=== PATIENT | male | born 1990 | race Caucasian/White ===

== ENCOUNTER 2019-02-04 15:19 | Inpatient (IN) | payer MEDICAID, OTHER ==
[~2019-02-04] VITALS: Ht 172.7 cm; Wt 68.0 kg
[~2019-02-04 15:19] MED LIST: ACET-2247 PO; RISP3 PO; SERT50TA12 PO
[2019-02-04] MEDS ORDERED: SODIUM CHLORIDE 0.9% 1,000 ML IV ONE ×3 (15:30→22:30)
[2019-02-04 15:58] LABS: BASOPHILS % (AUTO) 0.4 % (0.0-2.0); EOSINOPHILS % (AUTO) 0.2 % (1.0-6.0); HEMATOCRIT 35.7 % (41-53); HEMOGLOBIN 11.5 g/dL (13.5-17.5); LYMPHOCYTES # (AUTO) 0.6 K/uL (1.0-4.8); MEAN CORPUSCULAR HEMOGLOBIN 29.3 pg (26.0-34.0); MEAN CORPUSCULAR HGB CONC 32.2 G/dL (31.0-37.0); MEAN CORPUSCULAR VOLUME 91 fL (80-100); MONOCYTES # (AUTO) 0.3 K/uL (0.1-1.0); MONOCYTES % (AUTO) 4.7 % (2.0-9.0); NEUTROPHILS # (AUTO) 6.1 K/uL (1.8-7.7); PLATELET COUNT (AUTO) 270 K/uL (150-450); RED BLOOD CELL COUNT(AUTO) 3.93 MIL/uL (4.50-5.90); RED CELL DISTRIBUTION WIDTH 15.2 % (11.5-14.5)
[2019-02-04 16:00] LABS: NEUTROPHILS % (AUTO) 86.7 % (40.0-70.0)
[2019-02-04 16:07] LABS: ANION GAP 24 mmol/L (8-16); CALCIUM, TOTAL 8.3 mg/dL (8.8-10.5); CARBON DIOXIDE 14 mmol/L (22-29); CHLORIDE 108 mmol/L (98-107); CREATININE 1.02 mg/dL (0.60-1.30); GLOMERULAR FILTR. RATE CALC > 60 mL/min (>60); GLUCOSE,RANDOM 101 mg/dL (70-110); POTASSIUM 3.6 mmol/L (3.5-5.1); SODIUM SERUM 146 mmol/L (136-145); UREA NITROGEN, BLOOD 7 mg/dL (7-18)
[2019-02-04 16:12] LABS: PLATELET MORPHOLOGY COMMENT LARGE PLTS PRESENT
[2019-02-04 16:13] LABS: ALANINE AMINOTRANSFERASE 14 U/L (12-78); ALBUMIN 3.1 g/dL (3.4-5.0); ALKALINE PHOSPHATASE 72 U/L (46-116); ASPARTATE AMINOTRANSFERASE 19 U/L (15-37); BILIRUBIN,TOTAL 0.4 mg/dL (0.1-1.0)
[2019-02-04 16:14] LABS: ACETAMINOPHEN < 2 mcg/mL (10-30); SALICYLATE < 2.8 mg/dL (2.8-20.0)
[2019-02-04 16:42] LABS: AMPHET/METH SCREEN,URINE NEGATIVE (NEGATIVE); BARBITURATE SCREEN, URINE NEGATIVE (NEGATIVE); BENZODIAZEPINES SCREEN,URINE POSITIVE (NEGATIVE); CANNABINOID SCREEN,URINE NEGATIVE (NEGATIVE); COCAINE SCREEN,URINE NEGATIVE (NEGATIVE); METHADONE SCREEN, URINE NEGATIVE (NEGATIVE); OPIATE SCREEN,URINE NEGATIVE (NEGATIVE); PHENCYCLIDINE SCREEN,URINE NEGATIVE (NEGATIVE)
[2019-02-04] MEDS ORDERED: LORazepam 2 MG/ML VIAL ONE (21:02)
[2019-02-04] MEDS ORDERED: HALOPERIDOL LACTATE 5 MG/ML VIAL ONE (21:02)
[2019-02-04] MEDS ORDERED: HALOPERIDOL LACTATE 5 MG/ML VIAL IM ONE (21:15)
[2019-02-04] MEDS ORDERED: LORazepam 2 MG/ML VIAL IM ONE (21:15)
[2019-02-04] MEDS ORDERED: DiphenhydrAMINE HCL 50 MG/ML VIAL ONE (21:34)
[2019-02-04] MEDS ORDERED: DiphenhydrAMINE HCL 50 MG/ML VIAL IM ONE (22:00)
[2019-02-04 22:19] LABS: ANION GAP 8 mmol/L (8-16); CALCIUM, TOTAL 8.4 mg/dL (8.8-10.5); CARBON DIOXIDE 25 mmol/L (22-29); CHLORIDE 108 mmol/L (98-107); CREATININE 0.74 mg/dL (0.60-1.30); GLOMERULAR FILTR. RATE CALC > 60 mL/min (>60); GLUCOSE,RANDOM 89 mg/dL (70-110); POTASSIUM 3.1 mmol/L (3.5-5.1); SODIUM SERUM 141 mmol/L (136-145); UREA NITROGEN, BLOOD 4 mg/dL (7-18)
[2019-02-04] MEDS ORDERED: POTASSIUM CHLORIDE 20 MEQ ER TABLET PO ONE (22:45)
[2019-02-04 22:49] LABS: ALANINE AMINOTRANSFERASE 13 U/L (12-78); ALBUMIN 3.3 g/dL (3.4-5.0); ALKALINE PHOSPHATASE 77 U/L (46-116); ASPARTATE AMINOTRANSFERASE 26 U/L (15-37); BILIRUBIN,TOTAL 0.8 mg/dL (0.1-1.0); CREATINE KINASE, TOTAL ONLY 322 U/L (39-308); TOTAL PROTEIN, SERUM 7.2 g/dL (6.4-8.2)
[2019-02-05] MEDS ORDERED: BACITRACIN 0.9 GM PACKET OINTMENT TP ONE
[2019-02-05] MEDS: LORazepam 2 MG TABLET PO PRN ×3 (06:31→16:59)
[2019-02-05] MEDS: HALOPERIDOL 5 MG TABLET PO PRN ×3 (06:32→16:59)
[2019-02-05] MEDS: RisperiDONE 2 MG TABLET PO SCH (20:51)
[2019-02-05 21:45] VITALS: BP 121/88
[2019-02-05] MEDS ORDERED: MAGNESIUM HYDROXIDE SUSPENSION 30 ML UDCUP PO PRN (21:45)
[2019-02-05] MEDS ORDERED: ALBUTEROL SULFATE HFA 90 MCG/PUFF 8 GM INHALER IH PRN (21:45)
[2019-02-05] MEDS ORDERED: DOCUSATE SODIUM 100 MG CAPSULE PO PRN (21:45)
[2019-02-05] MEDS ORDERED: CloNIDine HCL 0.1 MG TABLET PO PRN (21:45)
[2019-02-05] MEDS ORDERED: PETROLATUM,WHITE 28 GM JELLY TP PRN (21:45)
[2019-02-05] MEDS ORDERED: ONDANSETRON HCL 4 MG TABLET PO PRN (21:45)
[2019-02-05] MEDS ORDERED: GuaiFENesin/D-METHORPHAN [SUGAR-FREE] 200-20MG/10 ML SYRUP UDCUP PO PRN (21:45)
[2019-02-05] MEDS ORDERED: PNEUMOCOCCAL VACCINE POLYVALENT 0.5 ML VIAL [PPSV23] IM ONE (22:15)
[2019-02-06] MEDS: RisperiDONE 2 MG TABLET PO SCH ×2 (09:18→20:37)
[2019-02-06 10:21] VITALS: BP 144/84
[2019-02-06] MEDS: SULFAMETHOX/TRIMETH DS 800-160 MG/TABLET PO SCH ×2 (10:59→16:24)
[2019-02-06] MEDS: CEPHALEXIN MONOHYDRATE 500 MG CAPSULE PO SCH ×2 (13:09→16:24)
[2019-02-06] MEDS: NICOTINE 14 MG/24 HOUR PATCH TD PRN (13:55)
[2019-02-06] MEDS: MULTIVITAMINS WITH MINERALS, THERAPEUTIC TABLET PO SCH (15:11)
[2019-02-06 16:55] VITALS: BP 135/75
[2019-02-06] MEDS: LORazepam 2 MG TABLET PO PRN (18:19)
[2019-02-07] VITALS: BP 143/96
[2019-02-07] MEDS: ZOLPIDEM TARTRATE 10 MG TABLET PO PRN (00:10)
[2019-02-07] MEDS: LORazepam 2 MG TABLET PO PRN (00:10)
[2019-02-07] MEDS: CEPHALEXIN MONOHYDRATE 500 MG CAPSULE PO SCH ×4 (09:02→16:39)
[2019-02-07] MEDS: RisperiDONE 2 MG TABLET PO SCH ×2 (09:02→21:03)
[2019-02-07] MEDS: SULFAMETHOX/TRIMETH DS 800-160 MG/TABLET PO SCH ×2 (09:02→16:39)
[2019-02-07] MEDS: MULTIVITAMINS WITH MINERALS, THERAPEUTIC TABLET PO SCH (09:02)
[2019-02-07] MEDS: TRIHEXYPHENIDYL HCL 2 MG TABLET PO SCH ×2 (11:42→21:03)
[2019-02-07 12:02] VITALS: BP 133/75
[2019-02-07 16:00] VITALS: BP 112/73
[2019-02-08 08:00] VITALS: BP 145/93
[2019-02-08] MEDS: CEPHALEXIN MONOHYDRATE 500 MG CAPSULE PO SCH ×3 (08:26→16:01)
[2019-02-08] MEDS: SULFAMETHOX/TRIMETH DS 800-160 MG/TABLET PO SCH ×2 (08:27→16:01)
[2019-02-08] MEDS: MULTIVITAMINS WITH MINERALS, THERAPEUTIC TABLET PO SCH (08:27)
[2019-02-08] MEDS: RisperiDONE 2 MG TABLET PO SCH ×2 (08:27→20:48)
[2019-02-08] MEDS: TRIHEXYPHENIDYL HCL 2 MG TABLET PO SCH ×2 (08:27→20:48)
[2019-02-08] MEDS: LORazepam 2 MG TABLET PO PRN (16:02)
[2019-02-08 20:20] VITALS: BP 133/76
[2019-02-09 06:18] VITALS: BP 115/69
[2019-02-09 08:20] VITALS: BP 144/89
[2019-02-09] MEDS: SULFAMETHOX/TRIMETH DS 800-160 MG/TABLET PO SCH ×2 (09:45→16:12)
[2019-02-09] MEDS: HALOPERIDOL 5 MG TABLET PO PRN ×2 (09:45→14:08)
[2019-02-09] MEDS: CEPHALEXIN MONOHYDRATE 500 MG CAPSULE PO SCH ×3 (09:45→16:11)
[2019-02-09] MEDS: MULTIVITAMINS WITH MINERALS, THERAPEUTIC TABLET PO SCH (09:45)
[2019-02-09] MEDS: LORazepam 2 MG TABLET PO PRN ×2 (09:45→14:08)
[2019-02-09] MEDS: RisperiDONE 2 MG TABLET PO SCH ×2 (09:46→21:57)
[2019-02-09] MEDS: TRIHEXYPHENIDYL HCL 2 MG TABLET PO SCH ×2 (09:46→21:57)
[2019-02-09 18:47] VITALS: BP 121/87
[2019-02-10] MEDS: LORazepam 2 MG TABLET PO PRN ×3 (03:15→12:36)
[2019-02-10] MEDS: ZOLPIDEM TARTRATE 10 MG TABLET PO PRN (03:15)
[2019-02-10] MEDS: SULFAMETHOX/TRIMETH DS 800-160 MG/TABLET PO SCH ×2 (08:29→16:13)
[2019-02-10] MEDS: HALOPERIDOL 5 MG TABLET PO PRN ×2 (08:29→12:36)
[2019-02-10] MEDS: MULTIVITAMINS WITH MINERALS, THERAPEUTIC TABLET PO SCH (08:29)
[2019-02-10] MEDS: RisperiDONE 2 MG TABLET PO SCH ×2 (08:29→21:00)
[2019-02-10] MEDS: CEPHALEXIN MONOHYDRATE 500 MG CAPSULE PO SCH ×3 (08:29→16:13)
[2019-02-10] MEDS: TRIHEXYPHENIDYL HCL 2 MG TABLET PO SCH ×2 (08:29→21:00)
[2019-02-10 12:36] VITALS: BP 154/103
[2019-02-10] MEDS: IBUPROFEN 400 MG TABLET PO PRN (12:36)
[2019-02-10 16:42] VITALS: BP 116/59
[2019-02-11] MEDS: ZOLPIDEM TARTRATE 10 MG TABLET PO PRN ×2 (00:27→23:34)
[2019-02-11] MEDS: LORazepam 2 MG TABLET PO PRN ×4 (00:27→23:35)
[2019-02-11] MEDS: IBUPROFEN 400 MG TABLET PO PRN ×3 (00:42→23:05)
[2019-02-11 00:43] VITALS: BP 132/75
[2019-02-11] MEDS: TRIHEXYPHENIDYL HCL 2 MG TABLET PO SCH ×2 (07:53→21:25)
[2019-02-11] MEDS: MULTIVITAMINS WITH MINERALS, THERAPEUTIC TABLET PO SCH (07:53)
[2019-02-11] MEDS: HALOPERIDOL 5 MG TABLET PO PRN ×2 (07:54→12:09)
[2019-02-11] MEDS: RisperiDONE 2 MG TABLET PO SCH ×2 (07:54→21:25)
[2019-02-11] MEDS: CEPHALEXIN MONOHYDRATE 500 MG CAPSULE PO SCH ×3 (07:54→16:26)
[2019-02-11] MEDS: SULFAMETHOX/TRIMETH DS 800-160 MG/TABLET PO SCH ×2 (07:54→16:26)
[2019-02-11] MEDS: NICOTINE 14 MG/24 HOUR PATCH TD PRN (07:55)
[2019-02-11 08:01] VITALS: BP 125/83
[2019-02-11 16:10] VITALS: BP 126/69
[2019-02-11 18:45] VITALS: BP 126/72
[2019-02-11] MEDS ORDERED: BENZOCAINE 10% 7 GM GEL TP PRN (20:00)
[2019-02-12] MEDS: HALOPERIDOL 5 MG TABLET PO PRN ×2 (00:50→12:20)
[2019-02-12] MEDS: TRIHEXYPHENIDYL HCL 2 MG TABLET PO SCH ×2 (08:14→21:22)
[2019-02-12] MEDS: MULTIVITAMINS WITH MINERALS, THERAPEUTIC TABLET PO SCH (08:14)
[2019-02-12] MEDS: CEPHALEXIN MONOHYDRATE 500 MG CAPSULE PO SCH ×3 (08:14→16:33)
[2019-02-12] MEDS: SULFAMETHOX/TRIMETH DS 800-160 MG/TABLET PO SCH ×2 (08:14→16:33)
[2019-02-12] MEDS: RisperiDONE 2 MG TABLET PO SCH ×2 (08:14→21:22)
[2019-02-12] MEDS: LORazepam 2 MG TABLET PO PRN ×2 (12:20→16:35)
[2019-02-12] MEDS: NICOTINE 14 MG/24 HOUR PATCH TD PRN (16:59)
[2019-02-12 22:32] VITALS: BP 124/78
[2019-02-12] MEDS: IBUPROFEN 400 MG TABLET PO PRN (22:33)
[2019-02-13] MEDS: ZOLPIDEM TARTRATE 10 MG TABLET PO PRN (00:27)
[2019-02-13 00:29] VITALS: BP 139/61
[2019-02-13] MEDS: LORazepam 2 MG TABLET PO PRN ×3 (01:46→12:45)
[2019-02-13] MEDS: RisperiDONE 2 MG TABLET PO SCH ×2 (08:14→20:25)
[2019-02-13] MEDS: MULTIVITAMINS WITH MINERALS, THERAPEUTIC TABLET PO SCH (08:14)
[2019-02-13] MEDS: HALOPERIDOL 5 MG TABLET PO PRN ×2 (08:14→12:45)
[2019-02-13] MEDS: CEPHALEXIN MONOHYDRATE 500 MG CAPSULE PO SCH ×3 (08:14→16:49)
[2019-02-13] MEDS: TRIHEXYPHENIDYL HCL 2 MG TABLET PO SCH ×2 (08:14→20:25)
[2019-02-13] MEDS: SULFAMETHOX/TRIMETH DS 800-160 MG/TABLET PO SCH ×2 (08:14→16:49)
[2019-02-13 08:54] VITALS: BP 132/82
[2019-02-13 16:30] VITALS: BP 128/91
[2019-02-13] MEDS: IBUPROFEN 400 MG TABLET PO PRN (20:24)
[2019-02-13 22:53] VITALS: BP 130/92
[2019-02-14 05:20] VITALS: BP 156/91
[2019-02-14] MEDS: IBUPROFEN 400 MG TABLET PO PRN (05:23)
[2019-02-14 08:00] VITALS: BP 141/91
[2019-02-14] MEDS: MULTIVITAMINS WITH MINERALS, THERAPEUTIC TABLET PO SCH (08:19)
[2019-02-14] MEDS: TRIHEXYPHENIDYL HCL 2 MG TABLET PO SCH ×2 (08:19→20:30)
[2019-02-14] MEDS: RisperiDONE 2 MG TABLET PO SCH ×2 (08:19→20:30)
[2019-02-14] MEDS: CEPHALEXIN MONOHYDRATE 500 MG CAPSULE PO SCH ×3 (08:19→16:34)
[2019-02-14] MEDS: SULFAMETHOX/TRIMETH DS 800-160 MG/TABLET PO SCH ×2 (08:19→16:34)
[2019-02-14] MEDS: HALOPERIDOL 5 MG TABLET PO PRN ×2 (08:20→13:56)
[2019-02-14] MEDS: LORazepam 2 MG TABLET PO PRN ×2 (08:20→13:56)
[2019-02-14] MEDS: NICOTINE 14 MG/24 HOUR PATCH TD PRN (14:36)
[2019-02-15] MEDS: IBUPROFEN 400 MG TABLET PO PRN (00:26)
[2019-02-15] MEDS: ZOLPIDEM TARTRATE 10 MG TABLET PO PRN (00:27)
[2019-02-15 00:31] VITALS: BP 120/71
[2019-02-15] MEDS: LORazepam 2 MG TABLET PO PRN ×3 (05:17→15:43)
[2019-02-15] MEDS: TRIHEXYPHENIDYL HCL 2 MG TABLET PO SCH ×2 (08:57→20:41)
[2019-02-15] MEDS: RisperiDONE 2 MG TABLET PO SCH ×2 (08:57→20:41)
[2019-02-15] MEDS: SULFAMETHOX/TRIMETH DS 800-160 MG/TABLET PO SCH ×2 (08:57→16:29)
[2019-02-15] MEDS: CEPHALEXIN MONOHYDRATE 500 MG CAPSULE PO SCH ×3 (08:57→16:29)
[2019-02-15] MEDS: MULTIVITAMINS WITH MINERALS, THERAPEUTIC TABLET PO SCH (08:57)
[2019-02-15] MEDS: HALOPERIDOL 5 MG TABLET PO PRN ×2 (09:20→15:43)
[2019-02-15 10:25] VITALS: BP 151/79
[2019-02-15 17:20] VITALS: BP 130/80
[2019-02-16] MEDS: LORazepam 2 MG TABLET PO PRN ×3 (04:00→13:36)
[2019-02-16] MEDS: HALOPERIDOL 5 MG TABLET PO PRN ×3 (04:00→13:35)
[2019-02-16 08:55] VITALS: BP 138/65
[2019-02-16] MEDS: RisperiDONE 2 MG TABLET PO SCH ×2 (08:55→20:18)
[2019-02-16] MEDS: IBUPROFEN 400 MG TABLET PO PRN ×2 (08:55→17:57)
[2019-02-16] MEDS: MULTIVITAMINS WITH MINERALS, THERAPEUTIC TABLET PO SCH (08:55)
[2019-02-16] MEDS: CEPHALEXIN MONOHYDRATE 500 MG CAPSULE PO SCH (08:55)
[2019-02-16] MEDS: NICOTINE 14 MG/24 HOUR PATCH TD PRN (08:56)
[2019-02-16] MEDS: TRIHEXYPHENIDYL HCL 2 MG TABLET PO SCH ×2 (08:57→20:18)
[2019-02-16 17:57] VITALS: BP 124/95
[2019-02-16] MEDS: ZOLPIDEM TARTRATE 10 MG TABLET PO PRN (22:53)
[2019-02-17 08:30] VITALS: BP 105/60
[2019-02-17] MEDS: TRIHEXYPHENIDYL HCL 2 MG TABLET PO SCH ×2 (08:39→20:28)
[2019-02-17] MEDS: MULTIVITAMINS WITH MINERALS, THERAPEUTIC TABLET PO SCH (08:39)
[2019-02-17] MEDS: RisperiDONE 2 MG TABLET PO SCH ×2 (08:39→20:28)
[2019-02-17] MEDS: IBUPROFEN 400 MG TABLET PO PRN (08:43)
[2019-02-17] MEDS: LORazepam 2 MG TABLET PO PRN (09:53)
[2019-02-17] MEDS: HALOPERIDOL 5 MG TABLET PO PRN (09:54)
[2019-02-17 20:20] VITALS: BP 116/72
[2019-02-17] MEDS: ACETAMINOPHEN 325 MG TABLET PO PRN (20:25)
[2019-02-18 01:26] VITALS: BP 122/71
[2019-02-18] MEDS: ZOLPIDEM TARTRATE 10 MG TABLET PO PRN (01:26)
[2019-02-18] MEDS: IBUPROFEN 400 MG TABLET PO PRN ×2 (01:26→17:38)
[2019-02-18 08:00] VITALS: BP 120/82
[2019-02-18] MEDS: TRIHEXYPHENIDYL HCL 2 MG TABLET PO SCH ×2 (08:55→20:32)
[2019-02-18] MEDS: RisperiDONE 2 MG TABLET PO SCH ×2 (08:55→20:32)
[2019-02-18] MEDS: MULTIVITAMINS WITH MINERALS, THERAPEUTIC TABLET PO SCH (08:55)
[2019-02-18] MEDS: LORazepam 2 MG TABLET PO PRN ×2 (08:58→14:58)
[2019-02-18] MEDS: HALOPERIDOL 5 MG TABLET PO PRN (08:58)
[2019-02-18 16:48] VITALS: BP 129/85
[2019-02-18 17:39] VITALS: BP 122/79
[2019-02-19] MEDS: IBUPROFEN 400 MG TABLET PO PRN ×2 (04:32→16:02)
[2019-02-19 04:33] VITALS: BP 100/70
[2019-02-19 08:00] VITALS: BP 123/70
[2019-02-19] MEDS: HALOPERIDOL 5 MG TABLET PO PRN (08:37)
[2019-02-19] MEDS: RisperiDONE 2 MG TABLET PO SCH ×2 (08:37→20:00)
[2019-02-19] MEDS: MULTIVITAMINS WITH MINERALS, THERAPEUTIC TABLET PO SCH (08:37)
[2019-02-19] MEDS: TRIHEXYPHENIDYL HCL 2 MG TABLET PO SCH ×2 (08:37→20:00)
[2019-02-19] MEDS: LORazepam 2 MG TABLET PO PRN (08:37)
[2019-02-19 16:02] VITALS: BP 123/67
[2019-02-19] MEDS: ZOLPIDEM TARTRATE 10 MG TABLET PO PRN (20:00)
[2019-02-20 00:05] VITALS: BP 135/84
[2019-02-20] MEDS: LORazepam 2 MG TABLET PO PRN ×2 (00:17→15:26)
[2019-02-20] MEDS: IBUPROFEN 400 MG TABLET PO PRN ×2 (00:17→12:44)
[2019-02-20] MEDS: TRIHEXYPHENIDYL HCL 2 MG TABLET PO SCH ×2 (08:36→20:14)
[2019-02-20] MEDS: RisperiDONE 2 MG TABLET PO SCH ×2 (08:36→20:14)
[2019-02-20] MEDS: MULTIVITAMINS WITH MINERALS, THERAPEUTIC TABLET PO SCH (08:36)
[2019-02-20 08:57] VITALS: BP 124/89
[2019-02-20 12:44] VITALS: BP 126/86
[2019-02-20 17:16] VITALS: BP 131/79
[2019-02-20] MEDS: ZOLPIDEM TARTRATE 10 MG TABLET PO PRN (20:14)
[2019-02-21 01:00] VITALS: BP 114/77
[2019-02-21] MEDS: LORazepam 2 MG TABLET PO PRN ×3 (01:01→15:37)
[2019-02-21] MEDS: IBUPROFEN 400 MG TABLET PO PRN (01:01)
[2019-02-21 08:00] VITALS: BP 119/77
[2019-02-21] MEDS: HALOPERIDOL 5 MG TABLET PO PRN ×2 (08:13→15:37)
[2019-02-21] MEDS: RisperiDONE 2 MG TABLET PO SCH ×2 (08:14→20:40)
[2019-02-21] MEDS: MULTIVITAMINS WITH MINERALS, THERAPEUTIC TABLET PO SCH (08:14)
[2019-02-21] MEDS: TRIHEXYPHENIDYL HCL 2 MG TABLET PO SCH ×2 (08:14→20:39)
[2019-02-21] MEDS ORDERED: TUBERCULIN, PURIFIED PROTEIN DERIVATIVE 5 TU/0.1 ML SYRINGE ID ONE (09:00)
[2019-02-21 16:41] VITALS: BP 131/77
[2019-02-22 08:00] VITALS: BP 114/70
[2019-02-22] MEDS: RisperiDONE 2 MG TABLET PO SCH ×2 (08:18→21:11)
[2019-02-22] MEDS: LORazepam 2 MG TABLET PO PRN ×3 (08:18→19:48)
[2019-02-22] MEDS: ACETAMINOPHEN 325 MG TABLET PO PRN (08:18)
[2019-02-22] MEDS: MULTIVITAMINS WITH MINERALS, THERAPEUTIC TABLET PO SCH (08:18)
[2019-02-22] MEDS: HALOPERIDOL 5 MG TABLET PO PRN ×2 (08:19→19:48)
[2019-02-22] MEDS: TRIHEXYPHENIDYL HCL 2 MG TABLET PO SCH ×2 (08:19→21:11)
[2019-02-22 16:16] VITALS: BP 117/77
[2019-02-22] MEDS: ZOLPIDEM TARTRATE 10 MG TABLET PO PRN (21:11)
[2019-02-23] MEDS: TRIHEXYPHENIDYL HCL 2 MG TABLET PO SCH ×2 (07:50→20:04)
[2019-02-23] MEDS: MULTIVITAMINS WITH MINERALS, THERAPEUTIC TABLET PO SCH (07:50)
[2019-02-23] MEDS: RisperiDONE 2 MG TABLET PO SCH ×2 (07:50→20:04)
[2019-02-23] MEDS: IBUPROFEN 400 MG TABLET PO PRN ×2 (07:50→20:11)
[2019-02-23] MEDS: LORazepam 2 MG TABLET PO PRN ×2 (07:51→17:12)
[2019-02-23 08:00] VITALS: BP 122/93
[2019-02-23 16:43] VITALS: BP 116/71
[2019-02-23] MEDS: HALOPERIDOL 5 MG TABLET PO PRN (17:12)
[2019-02-23] MEDS: ZOLPIDEM TARTRATE 10 MG TABLET PO PRN (20:04)
[2019-02-23 20:11] VITALS: BP 129/91
[2019-02-24] MEDS: IBUPROFEN 400 MG TABLET PO PRN (08:16)
[2019-02-24 08:29] VITALS: BP 125/61
[2019-02-24] MEDS: LORazepam 2 MG TABLET PO PRN (08:54)
[2019-02-24] MEDS: HALOPERIDOL 5 MG TABLET PO PRN (08:54)
[2019-02-24] MEDS: RisperiDONE 2 MG TABLET PO SCH ×2 (08:55→20:28)
[2019-02-24] MEDS: TRIHEXYPHENIDYL HCL 2 MG TABLET PO SCH ×2 (08:55→20:28)
[2019-02-24] MEDS: MULTIVITAMINS WITH MINERALS, THERAPEUTIC TABLET PO SCH (08:55)
[2019-02-24 16:58] VITALS: BP 119/66
[2019-02-25] MEDS: IBUPROFEN 400 MG TABLET PO PRN ×2 (07:47→19:20)
[2019-02-25] MEDS: TRIHEXYPHENIDYL HCL 2 MG TABLET PO SCH ×2 (07:47→20:43)
[2019-02-25] MEDS: LORazepam 2 MG TABLET PO PRN ×3 (07:47→16:41)
[2019-02-25] MEDS: MULTIVITAMINS WITH MINERALS, THERAPEUTIC TABLET PO SCH (07:47)
[2019-02-25] MEDS: HALOPERIDOL 5 MG TABLET PO PRN ×3 (07:47→16:42)
[2019-02-25] MEDS: RisperiDONE 2 MG TABLET PO SCH ×2 (07:47→20:43)
[2019-02-25 14:44] VITALS: BP 132/80
[2019-02-25 19:20] VITALS: BP 119/76
[2019-02-25] MEDS: ZOLPIDEM TARTRATE 10 MG TABLET PO PRN (21:19)
[2019-02-26] MEDS: TRIHEXYPHENIDYL HCL 2 MG TABLET PO SCH ×2 (08:48→20:16)
[2019-02-26] MEDS: MULTIVITAMINS WITH MINERALS, THERAPEUTIC TABLET PO SCH (08:48)
[2019-02-26] MEDS: RisperiDONE 2 MG TABLET PO SCH ×2 (08:48→20:16)
[2019-02-26 09:06] VITALS: BP 130/94
[2019-02-26 12:42] VITALS: BP 122/75
[2019-02-26] MEDS: IBUPROFEN 400 MG TABLET PO PRN (12:42)
[2019-02-26] MEDS: LORazepam 2 MG TABLET PO PRN (16:07)
[2019-02-26] MEDS: HALOPERIDOL 5 MG TABLET PO PRN (16:07)
[2019-02-26] MEDS: ZOLPIDEM TARTRATE 10 MG TABLET PO PRN (21:48)
[2019-02-26 22:30] VITALS: BP 117/74
[2019-02-27] MEDS: MULTIVITAMINS WITH MINERALS, THERAPEUTIC TABLET PO SCH (08:50)
[2019-02-27] MEDS: TRIHEXYPHENIDYL HCL 2 MG TABLET PO SCH ×2 (08:50→21:56)
[2019-02-27] MEDS: RisperiDONE 2 MG TABLET PO SCH ×2 (08:50→21:56)
[2019-02-27] MEDS: HALOPERIDOL DECANOATE 100 MG/ML VIAL IM SCH (09:17)
[2019-02-27 09:54] VITALS: BP 129/63
[2019-02-27 09:55] VITALS: BP 129/63
[2019-02-27] MEDS: IBUPROFEN 400 MG TABLET PO PRN (09:55)
[2019-02-27] MEDS: HALOPERIDOL 5 MG TABLET PO PRN (16:37)
[2019-02-27] MEDS: LORazepam 2 MG TABLET PO PRN (16:37)
[2019-02-27] MEDS: ZOLPIDEM TARTRATE 10 MG TABLET PO PRN (21:56)
[2019-02-27 23:29] VITALS: BP 119/70
[2019-02-28] MEDS: RisperiDONE 2 MG TABLET PO SCH ×2 (08:09→20:14)
[2019-02-28] MEDS: TRIHEXYPHENIDYL HCL 2 MG TABLET PO SCH ×2 (08:09→20:14)
[2019-02-28] MEDS: MULTIVITAMINS WITH MINERALS, THERAPEUTIC TABLET PO SCH (08:09)
[2019-02-28 08:10] VITALS: BP 117/68
[2019-02-28 10:42] VITALS: BP 114/72
[2019-02-28] MEDS: LORazepam 2 MG TABLET PO PRN ×2 (10:42→20:14)
[2019-02-28] MEDS: IBUPROFEN 400 MG TABLET PO PRN (10:42)
[2019-02-28] MEDS: HALOPERIDOL 5 MG TABLET PO PRN (10:42)
[2019-02-28 18:52] VITALS: BP 122/85
[2019-03-01 08:05] VITALS: BP 118/76
[2019-03-01] MEDS: MULTIVITAMINS WITH MINERALS, THERAPEUTIC TABLET PO SCH (08:23)
[2019-03-01] MEDS: RisperiDONE 2 MG TABLET PO SCH ×2 (08:23→20:22)
[2019-03-01] MEDS: TRIHEXYPHENIDYL HCL 2 MG TABLET PO SCH ×2 (08:24→20:22)
[2019-03-01 10:45] VITALS: BP 120/72
[2019-03-01] MEDS: LORazepam 2 MG TABLET PO PRN ×2 (10:47→16:37)
[2019-03-01] MEDS: IBUPROFEN 400 MG TABLET PO PRN (10:47)
[2019-03-01 16:00] VITALS: BP 137/84
[2019-03-02] MEDS: MULTIVITAMINS WITH MINERALS, THERAPEUTIC TABLET PO SCH (08:32)
[2019-03-02] MEDS: TRIHEXYPHENIDYL HCL 2 MG TABLET PO SCH ×2 (08:32→21:12)
[2019-03-02] MEDS: RisperiDONE 2 MG TABLET PO SCH ×2 (08:32→21:12)
[2019-03-02 08:33] VITALS: BP 136/90
[2019-03-02] MEDS: IBUPROFEN 400 MG TABLET PO PRN ×2 (08:33→16:45)
[2019-03-02 16:45] VITALS: BP 139/96
[2019-03-02] MEDS: HALOPERIDOL 5 MG TABLET PO PRN (17:12)
[2019-03-02] MEDS: LORazepam 2 MG TABLET PO PRN (17:12)
[2019-03-03] MEDS: MULTIVITAMINS WITH MINERALS, THERAPEUTIC TABLET PO SCH (08:04)
[2019-03-03] MEDS: RisperiDONE 2 MG TABLET PO SCH ×2 (08:04→20:06)
[2019-03-03] MEDS: TRIHEXYPHENIDYL HCL 2 MG TABLET PO SCH ×2 (08:04→20:06)
[2019-03-03 08:52] VITALS: BP 121/88
[2019-03-03] MEDS: IBUPROFEN 400 MG TABLET PO PRN (08:52)
[2019-03-03] MEDS: LORazepam 2 MG TABLET PO PRN (16:53)
[2019-03-03] MEDS: HALOPERIDOL 5 MG TABLET PO PRN (16:53)
[2019-03-03 16:55] VITALS: BP 130/79
[2019-03-04] MEDS: MULTIVITAMINS WITH MINERALS, THERAPEUTIC TABLET PO SCH (08:30)
[2019-03-04] MEDS: TRIHEXYPHENIDYL HCL 2 MG TABLET PO SCH ×2 (08:30→20:45)
[2019-03-04] MEDS: RisperiDONE 2 MG TABLET PO SCH ×2 (08:30→20:45)
[2019-03-04 08:34] VITALS: BP 116/77
[2019-03-04] MEDS: LORazepam 2 MG TABLET PO PRN (15:55)
[2019-03-04 20:48] VITALS: BP 137/91
[2019-03-05] MEDS: ZOLPIDEM TARTRATE 10 MG TABLET PO PRN (01:55)
[2019-03-05 04:50] VITALS: BP 111/55
[2019-03-05] MEDS: IBUPROFEN 400 MG TABLET PO PRN (04:53)
[2019-03-05] MEDS: HALOPERIDOL 5 MG TABLET PO PRN ×2 (08:44→15:46)
[2019-03-05] MEDS: RisperiDONE 2 MG TABLET PO SCH ×2 (08:44→20:23)
[2019-03-05] MEDS: TRIHEXYPHENIDYL HCL 2 MG TABLET PO SCH ×2 (08:44→20:23)
[2019-03-05] MEDS: MULTIVITAMINS WITH MINERALS, THERAPEUTIC TABLET PO SCH (08:44)
[2019-03-05] MEDS: LORazepam 2 MG TABLET PO PRN ×2 (08:44→15:46)
[2019-03-05] MEDS: NICOTINE 14 MG/24 HOUR PATCH TD PRN (08:47)
[2019-03-05 09:13] VITALS: BP 128/90
[2019-03-05 17:15] VITALS: BP 123/79
[2019-03-06] VITALS: BP 138/89
[2019-03-06] MEDS: ZOLPIDEM TARTRATE 10 MG TABLET PO PRN (00:03)
[2019-03-06] MEDS: IBUPROFEN 400 MG TABLET PO PRN (00:04)
[2019-03-06 08:05] VITALS: BP 123/62
[2019-03-06] MEDS: TRIHEXYPHENIDYL HCL 2 MG TABLET PO SCH ×2 (08:22→21:45)
[2019-03-06] MEDS: RisperiDONE 2 MG TABLET PO SCH ×2 (08:23→21:45)
[2019-03-06] MEDS: MULTIVITAMINS WITH MINERALS, THERAPEUTIC TABLET PO SCH (08:23)
[2019-03-06 16:33] VITALS: BP 127/79
[2019-03-07] MEDS: TRIHEXYPHENIDYL HCL 2 MG TABLET PO SCH ×2 (07:48→21:20)
[2019-03-07] MEDS: MULTIVITAMINS WITH MINERALS, THERAPEUTIC TABLET PO SCH (07:48)
[2019-03-07] MEDS: RisperiDONE 2 MG TABLET PO SCH ×2 (07:48→21:19)
[2019-03-07 10:07] VITALS: BP 125/83
[2019-03-07 17:00] VITALS: BP 130/71
[2019-03-08] MEDS: ZOLPIDEM TARTRATE 10 MG TABLET PO PRN (01:00)
[2019-03-08 08:00] VITALS: BP 145/63
[2019-03-08] MEDS: RisperiDONE 2 MG TABLET PO SCH ×2 (08:29→20:35)
[2019-03-08] MEDS: MULTIVITAMINS WITH MINERALS, THERAPEUTIC TABLET PO SCH (08:29)
[2019-03-08] MEDS: TRIHEXYPHENIDYL HCL 2 MG TABLET PO SCH ×2 (08:29→20:35)
[2019-03-08 16:00] VITALS: BP 125/77
[2019-03-09] MEDS: ZOLPIDEM TARTRATE 10 MG TABLET PO PRN (00:39)
[2019-03-09] MEDS: LORazepam 2 MG TABLET PO PRN ×2 (00:39→08:43)
[2019-03-09] MEDS: MULTIVITAMINS WITH MINERALS, THERAPEUTIC TABLET PO SCH (08:43)
[2019-03-09] MEDS: HALOPERIDOL 5 MG TABLET PO PRN (08:43)
[2019-03-09] MEDS: RisperiDONE 2 MG TABLET PO SCH ×2 (08:43→20:20)
[2019-03-09] MEDS: IBUPROFEN 400 MG TABLET PO PRN (08:44)
[2019-03-09] MEDS: TRIHEXYPHENIDYL HCL 2 MG TABLET PO SCH ×2 (08:56→20:20)
[2019-03-09 09:21] VITALS: BP 121/68
[2019-03-09 16:00] VITALS: BP 136/69
[2019-03-10] MEDS: ZOLPIDEM TARTRATE 10 MG TABLET PO PRN ×2 (00:01→22:51)
[2019-03-10 01:00] VITALS: BP 146/89
[2019-03-10] MEDS: LORazepam 2 MG TABLET PO PRN ×2 (01:06→08:02)
[2019-03-10] MEDS: RisperiDONE 2 MG TABLET PO SCH ×2 (08:02→20:29)
[2019-03-10] MEDS: TRIHEXYPHENIDYL HCL 2 MG TABLET PO SCH ×2 (08:02→20:29)
[2019-03-10] MEDS: MULTIVITAMINS WITH MINERALS, THERAPEUTIC TABLET PO SCH (08:02)
[2019-03-10] MEDS: HALOPERIDOL 5 MG TABLET PO PRN (08:02)
[2019-03-10 08:42] VITALS: BP 129/86
[2019-03-10 19:28] VITALS: BP 122/74
[2019-03-11 02:29] VITALS: BP 116/71
[2019-03-11] MEDS: HALOPERIDOL 5 MG TABLET PO PRN (09:20)
[2019-03-11] MEDS: RisperiDONE 2 MG TABLET PO SCH ×2 (09:24→20:12)
[2019-03-11] MEDS: TRIHEXYPHENIDYL HCL 2 MG TABLET PO SCH ×2 (09:24→20:12)
[2019-03-11] MEDS: LORazepam 2 MG TABLET PO PRN (09:25)
[2019-03-11] MEDS: MULTIVITAMINS WITH MINERALS, THERAPEUTIC TABLET PO SCH (09:25)
[2019-03-11 10:00] VITALS: BP 111/85
[2019-03-11] MEDS: IBUPROFEN 400 MG TABLET PO PRN (10:00)
[2019-03-11 18:03] VITALS: BP 112/77
[2019-03-11] MEDS: ZOLPIDEM TARTRATE 10 MG TABLET PO PRN (22:28)
[2019-03-12] MEDS: MULTIVITAMINS WITH MINERALS, THERAPEUTIC TABLET PO SCH (09:00)
[2019-03-12] MEDS: RisperiDONE 2 MG TABLET PO SCH ×2 (09:12→21:14)
[2019-03-12] MEDS: TRIHEXYPHENIDYL HCL 2 MG TABLET PO SCH ×2 (09:12→21:14)
[2019-03-12] MEDS: LORazepam 2 MG TABLET PO PRN ×2 (09:12→14:12)
[2019-03-12 09:45] VITALS: BP 101/65
[2019-03-12] MEDS: IBUPROFEN 400 MG TABLET PO PRN (09:50)
[2019-03-12] MEDS: HALOPERIDOL 5 MG TABLET PO PRN ×2 (09:51→14:12)
[2019-03-12 16:26] VITALS: BP 110/68
[2019-03-13] MEDS: ZOLPIDEM TARTRATE 10 MG TABLET PO PRN ×2 (00:11→21:28)
[2019-03-13 00:14] VITALS: BP 116/62
[2019-03-13] MEDS: IBUPROFEN 400 MG TABLET PO PRN ×2 (00:52→23:51)
[2019-03-13] MEDS: LORazepam 2 MG TABLET PO PRN ×3 (01:18→22:39)
[2019-03-13] MEDS: HALOPERIDOL 5 MG TABLET PO PRN ×2 (01:19→16:06)
[2019-03-13] MEDS: TRIHEXYPHENIDYL HCL 2 MG TABLET PO SCH ×2 (09:17→21:01)
[2019-03-13] MEDS: RisperiDONE 2 MG TABLET PO SCH ×2 (09:18→21:01)
[2019-03-13] MEDS: MULTIVITAMINS WITH MINERALS, THERAPEUTIC TABLET PO SCH (09:18)
[2019-03-13 09:51] VITALS: BP 101/67
[2019-03-13 11:17] LABS: BASOPHILS % (AUTO) 0.7 % (0.0-2.0); EOSINOPHILS % (AUTO) 1.9 % (1.0-6.0); HEMATOCRIT 40.4 % (41-53); HEMOGLOBIN 13.3 g/dL (13.5-17.5); LYMPHOCYTES # (AUTO) 1.5 K/uL (1.0-4.8); LYMPHOCYTES % (AUTO) 35.5 % (22.0-44.0); MEAN CORPUSCULAR HEMOGLOBIN 28.8 pg (26.0-34.0); MEAN CORPUSCULAR VOLUME 87 fL (80-100); MONOCYTES # (AUTO) 0.4 K/uL (0.1-1.0); MONOCYTES % (AUTO) 9.4 % (2.0-9.0); NEUTROPHILS # (AUTO) 2.2 K/uL (1.8-7.7); NEUTROPHILS % (AUTO) 52.5 % (40.0-70.0); PLATELET COUNT (AUTO) 252 K/uL (150-450); RED BLOOD CELL COUNT(AUTO) 4.62 MIL/uL (4.50-5.90); RED CELL DISTRIBUTION WIDTH 14.2 % (11.5-14.5)
[2019-03-13 11:33] LABS: ANION GAP 5 mmol/L (8-16); CALCIUM, TOTAL 9.3 mg/dL (8.8-10.5); CARBON DIOXIDE 29 mmol/L (22-29); CHLORIDE 102 mmol/L (98-107); CREATININE 0.74 mg/dL (0.60-1.30); GLOMERULAR FILTR. RATE CALC > 60 mL/min (>60); GLUCOSE,RANDOM 91 mg/dL (70-110); POTASSIUM 4.1 mmol/L (3.5-5.1); SODIUM SERUM 136 mmol/L (136-145); UREA NITROGEN, BLOOD 18 mg/dL (7-18)
[2019-03-13 17:00] VITALS: BP 100/60
[2019-03-14] VITALS: BP 150/84
[2019-03-14] MEDS: MULTIVITAMINS WITH MINERALS, THERAPEUTIC TABLET PO SCH (09:27)
[2019-03-14] MEDS: TRIHEXYPHENIDYL HCL 2 MG TABLET PO SCH ×2 (09:27→20:19)
[2019-03-14] MEDS: RisperiDONE 2 MG TABLET PO SCH ×2 (09:27→20:19)
[2019-03-14 13:20] VITALS: BP 107/70
[2019-03-14] MEDS: ACETAMINOPHEN 325 MG TABLET PO PRN (13:20)
[2019-03-14] MEDS: LORazepam 2 MG TABLET PO PRN ×2 (16:29→22:03)
[2019-03-14] MEDS: HALOPERIDOL 5 MG TABLET PO PRN (16:29)
[2019-03-14] MEDS: ZOLPIDEM TARTRATE 10 MG TABLET PO PRN (20:54)
[2019-03-14 21:36] VITALS: BP 122/75
[2019-03-15 00:39] VITALS: BP_SYST 128; BP_SYST 134; BP_DIAS 69; BP_DIAS 85
[2019-03-15 08:00] VITALS: BP 128/70
[2019-03-15] MEDS: MULTIVITAMINS WITH MINERALS, THERAPEUTIC TABLET PO SCH ×2 (09:00→09:24)
[2019-03-15] MEDS: RisperiDONE 2 MG TABLET PO SCH ×2 (09:24→20:23)
[2019-03-15] MEDS: TRIHEXYPHENIDYL HCL 2 MG TABLET PO SCH ×2 (09:25→20:23)
[2019-03-15] MEDS: HALOPERIDOL 5 MG TABLET PO PRN (12:57)
[2019-03-15] MEDS: LORazepam 2 MG TABLET PO PRN (12:57)
[2019-03-15 16:57] VITALS: BP 138/90
[2019-03-16] MEDS: MULTIVITAMINS WITH MINERALS, THERAPEUTIC TABLET PO SCH (09:00)
[2019-03-16] MEDS: RisperiDONE 2 MG TABLET PO SCH ×2 (09:20→20:24)
[2019-03-16] MEDS: HALOPERIDOL 5 MG TABLET PO PRN ×2 (09:20→16:00)
[2019-03-16] MEDS: TRIHEXYPHENIDYL HCL 2 MG TABLET PO SCH ×2 (09:20→20:24)
[2019-03-16] MEDS: LORazepam 2 MG TABLET PO PRN ×2 (09:20→16:00)
[2019-03-16 17:00] VITALS: BP 130/72
[2019-03-16] MEDS: IBUPROFEN 400 MG TABLET PO PRN (17:03)
[2019-03-17 00:45] VITALS: BP 122/74
[2019-03-17] MEDS: LORazepam 2 MG TABLET PO PRN ×3 (00:48→16:17)
[2019-03-17] MEDS: ZOLPIDEM TARTRATE 10 MG TABLET PO PRN ×2 (00:48→22:50)
[2019-03-17] MEDS: MULTIVITAMINS WITH MINERALS, THERAPEUTIC TABLET PO SCH (09:00)
[2019-03-17] MEDS: RisperiDONE 2 MG TABLET PO SCH ×2 (09:23→20:15)
[2019-03-17] MEDS: TRIHEXYPHENIDYL HCL 2 MG TABLET PO SCH ×2 (09:23→20:15)
[2019-03-17 12:56] VITALS: BP 129/71
[2019-03-17] MEDS: HALOPERIDOL 5 MG TABLET PO PRN (16:17)
[2019-03-17 16:30] VITALS: BP 115/71
[2019-03-18] MEDS: LORazepam 2 MG TABLET PO PRN ×3 (00:09→17:56)
[2019-03-18] MEDS: HALOPERIDOL 5 MG TABLET PO PRN ×2 (00:09→10:09)
[2019-03-18] MEDS: TRIHEXYPHENIDYL HCL 2 MG TABLET PO SCH ×2 (08:45→20:18)
[2019-03-18] MEDS: MULTIVITAMINS WITH MINERALS, THERAPEUTIC TABLET PO SCH ×2 (08:45→08:57)
[2019-03-18] MEDS: RisperiDONE 2 MG TABLET PO SCH ×2 (08:45→20:18)
[2019-03-18 09:48] VITALS: BP 127/81
[2019-03-18] MEDS: IBUPROFEN 400 MG TABLET PO PRN (10:09)
[2019-03-18 17:06] VITALS: BP 115/70
[2019-03-19] MEDS: HALOPERIDOL 5 MG TABLET PO PRN (09:18)
[2019-03-19] MEDS: MULTIVITAMINS WITH MINERALS, THERAPEUTIC TABLET PO SCH (09:18)
[2019-03-19] MEDS: TRIHEXYPHENIDYL HCL 2 MG TABLET PO SCH ×2 (09:18→20:28)
[2019-03-19] MEDS: LORazepam 2 MG TABLET PO PRN (09:19)
[2019-03-19] MEDS: RisperiDONE 2 MG TABLET PO SCH ×2 (09:19→20:28)
[2019-03-19] MEDS: IBUPROFEN 400 MG TABLET PO PRN (11:15)
[2019-03-19 16:25] VITALS: BP 124/77
[2019-03-19] MEDS: ZOLPIDEM TARTRATE 10 MG TABLET PO PRN (21:08)
[2019-03-20] MEDS: IBUPROFEN 400 MG TABLET PO PRN (01:26)
[2019-03-20 01:27] VITALS: BP 142/92
[2019-03-20] MEDS: HALOPERIDOL 5 MG TABLET PO PRN ×2 (02:11→08:20)
[2019-03-20] MEDS: LORazepam 2 MG TABLET PO PRN ×2 (02:11→08:21)
[2019-03-20] MEDS: MULTIVITAMINS WITH MINERALS, THERAPEUTIC TABLET PO SCH (08:20)
[2019-03-20] MEDS: TRIHEXYPHENIDYL HCL 2 MG TABLET PO SCH ×2 (08:20→20:48)
[2019-03-20] MEDS: RisperiDONE 2 MG TABLET PO SCH ×2 (08:20→20:48)
[2019-03-20 17:21] VITALS: BP 122/77
[2019-03-20] MEDS: ZOLPIDEM TARTRATE 10 MG TABLET PO PRN (21:21)
[2019-03-21] MEDS: MULTIVITAMINS WITH MINERALS, THERAPEUTIC TABLET PO SCH ×2 (09:00→09:42)
[2019-03-21 09:38] VITALS: BP 122/78
[2019-03-21] MEDS: IBUPROFEN 400 MG TABLET PO PRN ×2 (09:42→23:43)
[2019-03-21] MEDS: LORazepam 2 MG TABLET PO PRN (09:42)
[2019-03-21] MEDS: RisperiDONE 2 MG TABLET PO SCH ×2 (09:42→20:06)
[2019-03-21] MEDS: HALOPERIDOL 5 MG TABLET PO PRN (09:42)
[2019-03-21] MEDS: TRIHEXYPHENIDYL HCL 2 MG TABLET PO SCH ×2 (09:42→20:06)
[2019-03-21 17:12] VITALS: BP 133/82
[2019-03-21] MEDS: ZOLPIDEM TARTRATE 10 MG TABLET PO PRN (21:44)
[2019-03-21 23:44] VITALS: BP 121/80
[2019-03-22] MEDS: MULTIVITAMINS WITH MINERALS, THERAPEUTIC TABLET PO SCH (09:00)
[2019-03-22 09:50] VITALS: BP 101/92
[2019-03-22] MEDS: TRIHEXYPHENIDYL HCL 2 MG TABLET PO SCH ×2 (09:53→20:17)
[2019-03-22] MEDS: HALOPERIDOL 5 MG TABLET PO PRN (09:53)
[2019-03-22] MEDS: LORazepam 2 MG TABLET PO PRN (09:53)
[2019-03-22] MEDS: RisperiDONE 2 MG TABLET PO SCH ×2 (09:53→20:17)
[2019-03-22] MEDS: IBUPROFEN 400 MG TABLET PO PRN (09:53)
[2019-03-22] MEDS: ZOLPIDEM TARTRATE 10 MG TABLET PO PRN (20:17)
[2019-03-23 02:41] VITALS: BP 142/82
[2019-03-23] MEDS: MAG HYDROX/AL HYDROX/SIMETH ES 30 ML SUSPENSION UDCUP PO PRN (02:41)
[2019-03-23] MEDS: IBUPROFEN 400 MG TABLET PO PRN ×2 (02:41→14:34)
[2019-03-23 09:05] VITALS: BP 108/63
[2019-03-23] MEDS: MULTIVITAMINS WITH MINERALS, THERAPEUTIC TABLET PO SCH (10:01)
[2019-03-23] MEDS: TRIHEXYPHENIDYL HCL 2 MG TABLET PO SCH ×2 (10:01→20:29)
[2019-03-23] MEDS: RisperiDONE 2 MG TABLET PO SCH ×2 (10:01→20:29)
[2019-03-23] MEDS: LORazepam 2 MG TABLET PO PRN ×3 (10:01→21:40)
[2019-03-23] MEDS: HALOPERIDOL 5 MG TABLET PO PRN ×2 (10:01→16:50)
[2019-03-23] MEDS: LOPERAMIDE HCL 2 MG CAPSULE PO PRN ×3 (11:05→16:50)
[2019-03-23 17:00] VITALS: BP 139/72
[2019-03-23] MEDS: ZOLPIDEM TARTRATE 10 MG TABLET PO PRN (20:29)
[2019-03-23] MEDS: ACETAMINOPHEN 325 MG TABLET PO PRN (21:40)
[2019-03-23 21:42] VITALS: BP 128/78
[2019-03-24 08:00] VITALS: BP 101/60
[2019-03-24] MEDS: MULTIVITAMINS WITH MINERALS, THERAPEUTIC TABLET PO SCH (08:50)
[2019-03-24] MEDS: TRIHEXYPHENIDYL HCL 2 MG TABLET PO SCH ×2 (08:51→20:07)
[2019-03-24] MEDS: RisperiDONE 2 MG TABLET PO SCH ×2 (08:51→20:07)
[2019-03-24] MEDS: LOPERAMIDE HCL 2 MG CAPSULE PO PRN ×2 (13:13→19:13)
[2019-03-24 16:00] VITALS: BP 121/53
[2019-03-24] MEDS: HALOPERIDOL 5 MG TABLET PO PRN ×2 (16:13→21:38)
[2019-03-24] MEDS: LORazepam 2 MG TABLET PO PRN ×2 (16:13→21:38)
[2019-03-24] MEDS: ZOLPIDEM TARTRATE 10 MG TABLET PO PRN (20:23)
[2019-03-25 05:28] VITALS: BP 134/75
[2019-03-25 09:29] VITALS: BP 144/81
[2019-03-25] MEDS: RisperiDONE 2 MG TABLET PO SCH (09:52)
[2019-03-25] MEDS: MULTIVITAMINS WITH MINERALS, THERAPEUTIC TABLET PO SCH (09:52)
[2019-03-25] MEDS: TRIHEXYPHENIDYL HCL 2 MG TABLET PO SCH ×2 (09:53→21:12)
[2019-03-25] MEDS: ACETAMINOPHEN 325 MG TABLET PO PRN (12:01)
[2019-03-25 12:04] VITALS: BP 137/87
[2019-03-25 13:01] VITALS: BP 132/75
[2019-03-25 16:52] VITALS: BP 105/56
[2019-03-25] MEDS: IBUPROFEN 400 MG TABLET PO PRN (16:56)
[2019-03-25] MEDS: RisperiDONE 3 MG TABLET PO SCH (21:12)
[2019-03-25] MEDS: ZOLPIDEM TARTRATE 10 MG TABLET PO PRN (21:37)
[2019-03-25] MEDS: LORazepam 2 MG TABLET PO PRN (23:42)
[2019-03-25] MEDS: HALOPERIDOL 5 MG TABLET PO PRN (23:42)
[2019-03-26] VITALS: BP 114/56
[2019-03-26 09:46] VITALS: BP 111/69
[2019-03-26] MEDS: RisperiDONE 3 MG TABLET PO SCH ×2 (09:50→20:20)
[2019-03-26] MEDS: TRIHEXYPHENIDYL HCL 2 MG TABLET PO SCH ×2 (09:50→20:20)
[2019-03-26] MEDS: MULTIVITAMINS WITH MINERALS, THERAPEUTIC TABLET PO SCH (09:50)
[2019-03-26] MEDS: LORazepam 2 MG TABLET PO PRN ×3 (11:05→22:48)
[2019-03-26] MEDS: HALOPERIDOL 5 MG TABLET PO PRN ×3 (11:05→22:48)
[2019-03-26] MEDS: LOPERAMIDE HCL 2 MG CAPSULE PO PRN (11:05)
[2019-03-26 16:32] VITALS: BP 127/77
[2019-03-26] MEDS: ZOLPIDEM TARTRATE 10 MG TABLET PO PRN (21:04)
[2019-03-27] MEDS: RisperiDONE 3 MG TABLET PO SCH ×2 (08:58→20:12)
[2019-03-27] MEDS: MULTIVITAMINS WITH MINERALS, THERAPEUTIC TABLET PO SCH (08:58)
[2019-03-27] MEDS: TRIHEXYPHENIDYL HCL 2 MG TABLET PO SCH ×2 (08:58→20:12)
[2019-03-27 10:13] VITALS: BP 109/68
[2019-03-27] MEDS: LORazepam 2 MG TABLET PO PRN ×2 (11:20→15:54)
[2019-03-27] MEDS: HALOPERIDOL 5 MG TABLET PO PRN (15:54)
[2019-03-27 16:59] VITALS: BP 133/74
[2019-03-27 17:01] VITALS: BP 133/74
[2019-03-27] MEDS: LOPERAMIDE HCL 2 MG CAPSULE PO PRN (17:03)
[2019-03-27] MEDS: ZOLPIDEM TARTRATE 10 MG TABLET PO PRN (22:49)
[2019-03-28] MEDS: RisperiDONE 3 MG TABLET PO SCH ×2 (08:44→20:07)
[2019-03-28] MEDS: TRIHEXYPHENIDYL HCL 2 MG TABLET PO SCH ×2 (08:44→20:07)
[2019-03-28] MEDS: MULTIVITAMINS WITH MINERALS, THERAPEUTIC TABLET PO SCH (08:44)
[2019-03-28] MEDS: HALOPERIDOL 5 MG TABLET PO PRN ×2 (10:40→15:27)
[2019-03-28] MEDS: LORazepam 2 MG TABLET PO PRN ×3 (10:40→20:57)
[2019-03-28 16:03] VITALS: BP 123/94
[2019-03-28] MEDS: ZOLPIDEM TARTRATE 10 MG TABLET PO PRN (20:57)
[2019-03-29] MEDS: HALOPERIDOL 5 MG TABLET PO PRN ×2 (06:36→13:59)
[2019-03-29 08:00] VITALS: BP 132/62
[2019-03-29] MEDS: MULTIVITAMINS WITH MINERALS, THERAPEUTIC TABLET PO SCH (09:02)
[2019-03-29] MEDS: RisperiDONE 3 MG TABLET PO SCH ×2 (09:02→21:47)
[2019-03-29] MEDS: TRIHEXYPHENIDYL HCL 2 MG TABLET PO SCH ×2 (09:02→21:47)
[2019-03-29] MEDS: HALOPERIDOL DECANOATE 100 MG/ML VIAL IM SCH (09:58)
[2019-03-29] MEDS: LORazepam 2 MG TABLET PO PRN ×2 (16:33→21:46)
[2019-03-29 16:40] VITALS: BP 121/69
[2019-03-30 01:50] VITALS: BP 124/77
[2019-03-30] MEDS: LORazepam 2 MG TABLET PO PRN ×3 (01:50→16:11)
[2019-03-30] MEDS: ZOLPIDEM TARTRATE 10 MG TABLET PO PRN ×2 (01:50→20:54)
[2019-03-30] MEDS: MULTIVITAMINS WITH MINERALS, THERAPEUTIC TABLET PO SCH (08:49)
[2019-03-30] MEDS: TRIHEXYPHENIDYL HCL 2 MG TABLET PO SCH ×2 (08:49→20:54)
[2019-03-30] MEDS: RisperiDONE 3 MG TABLET PO SCH ×2 (08:49→20:54)
[2019-03-30 10:10] VITALS: BP 134/89
[2019-03-30 16:03] VITALS: BP 132/78
[2019-03-31 08:21] VITALS: BP 141/95
[2019-03-31] MEDS: LORazepam 2 MG TABLET PO PRN ×2 (08:34→16:14)
[2019-03-31] MEDS: RisperiDONE 3 MG TABLET PO SCH ×2 (08:34→20:19)
[2019-03-31] MEDS: TRIHEXYPHENIDYL HCL 2 MG TABLET PO SCH ×2 (08:34→20:19)
[2019-03-31] MEDS: MULTIVITAMINS WITH MINERALS, THERAPEUTIC TABLET PO SCH (09:00)
[2019-03-31 09:40] VITALS: BP 141/95
[2019-03-31] MEDS: HALOPERIDOL 5 MG TABLET PO PRN ×2 (09:43→16:14)
[2019-03-31] MEDS: IBUPROFEN 400 MG TABLET PO PRN (09:43)
[2019-03-31 19:21] VITALS: BP 126/78
[2019-03-31] MEDS: ZOLPIDEM TARTRATE 10 MG TABLET PO PRN (20:46)
[2019-04-01] MEDS: MULTIVITAMINS WITH MINERALS, THERAPEUTIC TABLET PO SCH (09:00)
[2019-04-01 09:01] VITALS: BP 118/65
[2019-04-01] MEDS: LORazepam 2 MG TABLET PO PRN ×2 (09:06→15:52)
[2019-04-01] MEDS: HALOPERIDOL 5 MG TABLET PO PRN (09:06)
[2019-04-01] MEDS: RisperiDONE 3 MG TABLET PO SCH ×2 (09:06→20:18)
[2019-04-01] MEDS: TRIHEXYPHENIDYL HCL 2 MG TABLET PO SCH ×2 (09:06→20:18)
[2019-04-01] MEDS: IBUPROFEN 400 MG TABLET PO PRN (09:07)
[2019-04-01 17:10] VITALS: BP 114/68
[2019-04-01] MEDS: ZOLPIDEM TARTRATE 10 MG TABLET PO PRN (20:18)
[2019-04-01] MEDS: ACETAMINOPHEN 325 MG TABLET PO PRN (21:03)
[2019-04-01 21:04] VITALS: BP 120/72
[2019-04-02 09:20] VITALS: BP 104/62
[2019-04-02] MEDS: HALOPERIDOL 5 MG TABLET PO PRN ×2 (09:56→17:30)
[2019-04-02] MEDS: LORazepam 2 MG TABLET PO PRN ×2 (09:56→17:30)
[2019-04-02] MEDS: RisperiDONE 3 MG TABLET PO SCH ×2 (09:56→20:07)
[2019-04-02] MEDS: MULTIVITAMINS WITH MINERALS, THERAPEUTIC TABLET PO SCH (09:56)
[2019-04-02] MEDS: TRIHEXYPHENIDYL HCL 2 MG TABLET PO SCH ×2 (09:56→20:07)
[2019-04-02 18:01] VITALS: BP 114/66
[2019-04-02] MEDS: ZOLPIDEM TARTRATE 10 MG TABLET PO PRN (21:19)
[2019-04-03] MEDS: LORazepam 2 MG TABLET PO PRN ×3 (08:22→19:02)
[2019-04-03] MEDS: MULTIVITAMINS WITH MINERALS, THERAPEUTIC TABLET PO SCH (08:22)
[2019-04-03] MEDS: HALOPERIDOL 5 MG TABLET PO PRN ×3 (08:22→20:49)
[2019-04-03] MEDS: RisperiDONE 3 MG TABLET PO SCH ×2 (08:22→20:25)
[2019-04-03] MEDS: TRIHEXYPHENIDYL HCL 2 MG TABLET PO SCH ×2 (08:22→20:25)
[2019-04-03 12:33] VITALS: BP 129/86
[2019-04-03 16:29] VITALS: BP 125/77
[2019-04-03] MEDS: ZOLPIDEM TARTRATE 10 MG TABLET PO PRN (20:49)
[2019-04-04] MEDS: MULTIVITAMINS WITH MINERALS, THERAPEUTIC TABLET PO SCH (08:12)
[2019-04-04] MEDS: TRIHEXYPHENIDYL HCL 2 MG TABLET PO SCH ×2 (08:12→20:16)
[2019-04-04] MEDS: RisperiDONE 3 MG TABLET PO SCH ×2 (08:12→20:16)
[2019-04-04 10:09] VITALS: BP 104/60
[2019-04-04] MEDS: LORazepam 2 MG TABLET PO PRN (10:16)
[2019-04-04 16:11] VITALS: BP 125/63
[2019-04-04] MEDS: IBUPROFEN 400 MG TABLET PO PRN (16:44)
[2019-04-04] MEDS: ZOLPIDEM TARTRATE 10 MG TABLET PO PRN (20:16)
[2019-04-05] MEDS: RisperiDONE 3 MG TABLET PO SCH ×2 (08:03→20:15)
[2019-04-05] MEDS: TRIHEXYPHENIDYL HCL 2 MG TABLET PO SCH ×2 (08:03→20:15)
[2019-04-05] MEDS: MULTIVITAMINS WITH MINERALS, THERAPEUTIC TABLET PO SCH (08:03)
[2019-04-05 10:09] VITALS: BP 121/71
[2019-04-05] MEDS: IBUPROFEN 400 MG TABLET PO PRN (13:16)
[2019-04-05 16:41] VITALS: BP 120/64
[2019-04-05] MEDS: ZOLPIDEM TARTRATE 10 MG TABLET PO PRN (20:15)
[2019-04-06 08:00] VITALS: BP 113/72
[2019-04-06] MEDS: MULTIVITAMINS WITH MINERALS, THERAPEUTIC TABLET PO SCH (08:16)
[2019-04-06] MEDS: RisperiDONE 3 MG TABLET PO SCH ×2 (08:16→21:08)
[2019-04-06] MEDS: TRIHEXYPHENIDYL HCL 2 MG TABLET PO SCH ×2 (08:16→21:08)
[2019-04-06 12:19] VITALS: BP 130/77
[2019-04-06] MEDS: IBUPROFEN 400 MG TABLET PO PRN (12:19)
[2019-04-06] MEDS: HALOPERIDOL 5 MG TABLET PO PRN ×2 (15:46→21:08)
[2019-04-06] MEDS: LORazepam 2 MG TABLET PO PRN ×2 (15:46→22:50)
[2019-04-06 16:26] VITALS: BP 126/60
[2019-04-06] MEDS: MAG HYDROX/AL HYDROX/SIMETH ES 30 ML SUSPENSION UDCUP PO PRN (19:35)
[2019-04-06] MEDS: ZOLPIDEM TARTRATE 10 MG TABLET PO PRN (21:07)
[2019-04-07 01:33] VITALS: BP 131/77
[2019-04-07] MEDS: RisperiDONE 3 MG TABLET PO SCH ×2 (08:21→20:34)
[2019-04-07] MEDS: TRIHEXYPHENIDYL HCL 2 MG TABLET PO SCH ×2 (08:21→20:34)
[2019-04-07] MEDS: MULTIVITAMINS WITH MINERALS, THERAPEUTIC TABLET PO SCH (08:21)
[2019-04-07 09:22] VITALS: BP 112/72
[2019-04-07 11:18] VITALS: BP 112/72
[2019-04-07] MEDS: IBUPROFEN 400 MG TABLET PO PRN (11:18)
[2019-04-07] MEDS: HALOPERIDOL 5 MG TABLET PO PRN (16:00)
[2019-04-07] MEDS: LORazepam 2 MG TABLET PO PRN ×2 (16:00→22:44)
[2019-04-07 16:08] VITALS: BP 124/77
[2019-04-07] MEDS: ZOLPIDEM TARTRATE 10 MG TABLET PO PRN (20:34)
[2019-04-08] MEDS: RisperiDONE 3 MG TABLET PO SCH ×2 (08:53→20:26)
[2019-04-08] MEDS: TRIHEXYPHENIDYL HCL 2 MG TABLET PO SCH ×2 (08:53→20:26)
[2019-04-08] MEDS: MULTIVITAMINS WITH MINERALS, THERAPEUTIC TABLET PO SCH (08:53)
[2019-04-08 09:22] VITALS: BP 115/55
[2019-04-08 13:19] VITALS: BP 110/64
[2019-04-08] MEDS: ACETAMINOPHEN 325 MG TABLET PO PRN (13:19)
[2019-04-08 14:19] VITALS: BP 114/69
[2019-04-08] MEDS: HALOPERIDOL 5 MG TABLET PO PRN (19:25)
[2019-04-08] MEDS: LORazepam 2 MG TABLET PO PRN (19:25)
[2019-04-08] MEDS: ZOLPIDEM TARTRATE 10 MG TABLET PO PRN (20:26)
[2019-04-09] MEDS: RisperiDONE 3 MG TABLET PO SCH ×2 (08:46→21:20)
[2019-04-09] MEDS: TRIHEXYPHENIDYL HCL 2 MG TABLET PO SCH ×2 (08:46→21:20)
[2019-04-09] MEDS: MULTIVITAMINS WITH MINERALS, THERAPEUTIC TABLET PO SCH (08:46)
[2019-04-09 09:29] VITALS: BP 106/60
[2019-04-09] MEDS: IBUPROFEN 400 MG TABLET PO PRN (13:09)
[2019-04-09] MEDS: LORazepam 2 MG TABLET PO PRN ×2 (13:17→19:22)
[2019-04-09] MEDS: HALOPERIDOL 5 MG TABLET PO PRN (19:21)
[2019-04-09] MEDS: ZOLPIDEM TARTRATE 10 MG TABLET PO PRN (21:19)
[2019-04-10] MEDS: LORazepam 2 MG TABLET PO PRN ×3 (04:07→16:28)
[2019-04-10] MEDS: HALOPERIDOL 5 MG TABLET PO PRN ×2 (04:08→08:47)
[2019-04-10 04:27] VITALS: BP 133/81
[2019-04-10] MEDS: IBUPROFEN 400 MG TABLET PO PRN ×2 (04:48→16:28)
[2019-04-10] MEDS: RisperiDONE 3 MG TABLET PO SCH ×2 (08:44→20:22)
[2019-04-10] MEDS: TRIHEXYPHENIDYL HCL 2 MG TABLET PO SCH ×2 (08:44→20:22)
[2019-04-10] MEDS: MULTIVITAMINS WITH MINERALS, THERAPEUTIC TABLET PO SCH (08:47)
[2019-04-10 09:52] VITALS: BP 142/76
[2019-04-10 16:28] VITALS: BP 117/85
[2019-04-10] MEDS: ZOLPIDEM TARTRATE 10 MG TABLET PO PRN (20:47)
[2019-04-11 03:45] VITALS: BP 141/74
[2019-04-11] MEDS: IBUPROFEN 400 MG TABLET PO PRN (03:50)
[2019-04-11] MEDS: LORazepam 2 MG TABLET PO PRN ×2 (03:50→15:04)
[2019-04-11 08:36] VITALS: BP 116/72
[2019-04-11] MEDS: RisperiDONE 3 MG TABLET PO SCH (08:41)
[2019-04-11] MEDS: TRIHEXYPHENIDYL HCL 2 MG TABLET PO SCH ×2 (08:41→20:17)
[2019-04-11] MEDS: MULTIVITAMINS WITH MINERALS, THERAPEUTIC TABLET PO SCH (08:41)
[2019-04-11 16:05] VITALS: BP 115/63
[2019-04-11] MEDS: ZOLPIDEM TARTRATE 10 MG TABLET PO PRN (20:34)
[2019-04-12] MEDS: TRIHEXYPHENIDYL HCL 2 MG TABLET PO SCH ×2 (08:35→20:35)
[2019-04-12] MEDS: MULTIVITAMINS WITH MINERALS, THERAPEUTIC TABLET PO SCH (08:35)
[2019-04-12 09:44] VITALS: BP 128/92
[2019-04-12] MEDS: IBUPROFEN 400 MG TABLET PO PRN (09:44)
[2019-04-12] MEDS: MAG HYDROX/AL HYDROX/SIMETH ES 30 ML SUSPENSION UDCUP PO PRN (12:56)
[2019-04-12] MEDS: HALOPERIDOL 5 MG TABLET PO PRN (16:04)
[2019-04-12] MEDS: LORazepam 2 MG TABLET PO PRN ×2 (16:04→20:36)
[2019-04-12 16:08] VITALS: BP 130/79
[2019-04-12] MEDS: ZOLPIDEM TARTRATE 10 MG TABLET PO PRN (20:35)
[2019-04-13 08:00] VITALS: BP 118/68
[2019-04-13] MEDS: MULTIVITAMINS WITH MINERALS, THERAPEUTIC TABLET PO SCH (08:39)
[2019-04-13] MEDS: TRIHEXYPHENIDYL HCL 2 MG TABLET PO SCH (08:39)
[2019-04-13] MEDS: LOPERAMIDE HCL 2 MG CAPSULE PO PRN (09:39)
[2019-04-13] MEDS: ACETAMINOPHEN 325 MG TABLET PO PRN (09:39)
[2019-04-13] MEDS: LORazepam 2 MG TABLET PO PRN (11:33)
[2019-04-13] MEDS ORDERED: HALO100V4 IM (13:18)
[2019-04-13] MEDS ORDERED: TRIH2TAB3 PO (13:28)
[2019-04-13] MEDS: HALOPERIDOL 5 MG TABLET PO PRN (15:54)
[2019-04-13 16:01] VITALS: BP 121/69
[2019-04-26] MEDS ORDERED: HALOPERIDOL DECANOATE 100 MG/ML VIAL IM SCH (09:00)
== END 2019-04-13 19:15 | DRG 753 ==
LOC: EMS 15:24 → 3EC 02-05 20:10 → 3EI 03-12 21:45
DX: F31.2 Bipolar disorder, current episode manic severe with psychotic features (principal); F10.231 Alcohol dependence with withdrawal delirium; D64.9 Anemia, unspecified; E87.6 Hypokalemia; F17.200 Nicotine dependence, unspecified, uncomplicated; S00.81XA Abrasion of other part of head, initial encounter; W17.89XA Other fall from one level to another, initial encounter; Y90.0 Blood alcohol level of less than 20 mg/100 ml; A53.9 Syphilis, unspecified; S80.922A Unspecified superficial injury of left lower leg, initial encounter; X58.XXXA Exposure to other specified factors, initial encounter; Y93.89 Activity, other specified; Z71.6 Tobacco abuse counseling; Z71.41 Alcohol abuse counseling and surveillance of alcoholic; Y92.89 Other specified places as the place of occurrence of the external cause; Y99.8 Other external cause status
CPT/HCPCS: 70450; 84132; 86592; G0480; G0481; J1200; J1630; J1631; J2060; J7030; Q0162